=== PATIENT | male | born 1995 | race Caucasian/White ===

== ENCOUNTER 2019-03-15 20:51 | Emergency (ER) | payer SELFPAY ==
--- NOTE | 2019-03-15 21:02 | EDM.PDOC ---
ED HPI GENERAL MEDICAL PROBLEM - General Chief Complaint: Genitourinary Problem Stated Complaint: TESTICLE PAIN Time Seen by Provider: 03/15/19 20:54 - History of Present Illness INITIAL COMMENTS - FREE TEXT/NARRATIVE: HISTORY AND PHYSICAL: History of present illness: The patient is a 23-year-old male who presents with a three-day history of swelling of his left testicle which he says started suddenly and has been constant. He says that it is never been painful but he felt like the skin had a burning-like sensation which is why he looked and noticed that the left one was slightly swollen. He's had no penile drainage no burning or pain with urination and no skin changes lesions or abrasions. He denies any recent trauma to the area and has had no fevers chills nausea vomiting abdominal pain or flank pain. The patient denies risk for STDs and is never had an STD. The patient says he hasn't felt any lumps or bumps in the testicle but he is concerned because it is slightly swollen and the burning sensation. Here in the ED he says that is not currently painful. Review of systems: As per history of present illness and below otherwise all systems reviewed and negative. Past medical history: As per history of present illness and as reviewed below otherwise noncontributory. Surgical history: As per history of present illness and as reviewed below otherwise noncontributory. Social history: No reported history of drug or alcohol abuse. Family history: As per history of present illness and as reviewed below otherwise noncontributory. Physical exam: General: Well-developed well-nourished male who is nontoxic and well ambulated into the ED. Vital signs are noted by me HEENT: Atraumatic, normocephalic, negative for conjunctival pallor or scleral icterus, mucous membranes moist, throat clear, neck supple, nontender, trachea midline. Lungs: Clear to auscultation, breath sounds equal bilaterally, chest nontender. Heart: S1S2, regular rate and rhythm no overt murmurs Abdomen: Soft, nondistended, nontender. Negative for masses or hepatosplenomegaly. Negative for costovertebral tenderness. Pelvis: Stable nontender. Genitourinary: There is no inguinal adenopathy and the testicles are descended bilaterally. The cremasteric reflex is slightly diminished on the left and the lie is lower on the left which the patient says is his baseline. There is no scrotal skin erythema lesions or abrasions seen and throughout the perineal skin there are no changes or lesions. There is no tenderness with examination in the left testicle is only slightly larger than the right without any palpable masses. There is no specific spermatic cord tenderness or epididymal tenderness. Rectal: Deferred. Extremities: Atraumatic, full range of motion, no pedal edema. Neurovascular unremarkable. Neuro: Awake, alert, oriented. Cranial nerves II through XII unremarkable. Cerebellum unremarkable. Motor and sensory unremarkable throughout. Exam nonfocal. Diagnostics: UA with reflex, urine for gonorrhea and chlamydia, ultrasound of scrotum and contents Therapeutics: Impression: Left testicular swelling/tenderness, small bilateral hydroceles Definitive disposition and diagnosis as appropriate pending reevaluation and review of above. scrutom Pain Score (Numeric/FACES): 2 - Related Data Allergies Allergy/AdvReac Type Severity Reaction Status Date / Time erythromycin base Allergy Cannot Verified 03/15/19 21:02 Remember Home Meds: Home Meds . [No Known Home Meds] 03/15/19 [History] ED ROS GENERAL - Review of Systems Review Of Systems: ROS reveals no pertinent complaints other than HPI. ED EXAM, GENERAL - Physical Exam Exam: See Below (See dictation) Course - Vital Signs Last Recorded V/S: Last Vital Signs Temp 36.4 C 03/15/19 20:51 Pulse 86 03/15/19 20:51 Resp 18 03/15/19 20:51 BP 135/85 03/15/19 20:51 Pulse Ox 97 03/15/19 20:51 - Orders/Labs/Meds Orders: Active Orders 24 hr Category Date Time Status Scrotal Duplex Ltd [US] Stat Exams 03/15/19 21:30 Taken CHLAMYDIA AND GONORRHEA BY [facility] Stat Lab 03/15/19 21:20 Received Labs: Laboratory Tests 03/15/19 Range/Units 21:20 Urine Color YELLOW Urine Appearance CLEAR Urine pH 6.0 (5.0-8.0) Ur Specific Braman 1.020 (1.001-1.035) Urine Protein NEGATIVE (NEGATIVE) mg/dL Urine Glucose (UA) NEGATIVE (NEGATIVE) mg/dL Urine Ketones NEGATIVE (NEGATIVE) mg/dL Urine Occult Blood NEGATIVE (NEGATIVE) Urine Nitrite NEGATIVE (NEGATIVE) Urine Bilirubin NEGATIVE (NEGATIVE) Urine Urobilinogen 0.2 (<2.0) EU/dL Ur Leukocyte Esterase NEGATIVE (NEGATIVE) Departure - Departure Time of Disposition: 22:19 Disposition: Home, Self-Care 01 Condition: Good Clinical Impression: Hydrocele of testis - Discharge Information Referrals: PCP,None [Primary Care Provider] - Forms: ED Department Discharge Additional Instructions: The following information is given to patients seen in the emergency department who are being discharged to home. This information is to outline your options for follow-up care. We provide all patients seen in our emergency department with a follow-up referral. The need for follow-up, as well as the timing and circumstances, are variable depending upon the specifics of your emergency department visit. If you don't have a primary care physician on staff, we will provide you with a referral. We always advise you to contact your personal physician following an emergency department visit to inform them of the circumstance of the visit and for follow-up with them and/or the need for any referrals to a consulting specialist. The emergency department will also refer you to a specialist when appropriate. This referral assures that you have the opportunity for followup care with a specialist. All of these measure are taken in an effort to provide you with optimal care, which includes your followup. Under all circumstances we always encourage you to contact your private physician who remains a resource for coordinating your care. When calling for followup care, please make the office aware that this follow-up is from your recent emergency room visit. If for any reason you are refused follow-up, please contact the [facility] emergency department at and ask to speak to the emergency department charge nurse. [facility] [address] [place] [id number] Wear supportive underwear and try to avoid boxer briefs that are loose. Take [id number] medications for any pain and please call and follow-up with our urologist using resources given to above for reevaluation further care. Return to ER as needed and as discussed - My Orders Last 24 Hours: My Active Orders 03/15/19 21:20 CHLAMYDIA AND GONORRHEA BY [facility] Stat 03/15/19 21:30 Scrotal Duplex Ltd [US] Stat - Assessment/Plan Last 24 Hours: My Active Orders 03/15/19 21:20 CHLAMYDIA AND GONORRHEA BY [facility] Stat 03/15/19 21:30 Scrotal Duplex Ltd [US] Stat
--- NOTE | 2019-03-15 22:14 | US ---
INDICATION: Left testicular swelling. Rule out torsion. COMPARISON: None available. FINDINGS: Ultrasound examination of the testes was performed with a high-resolution linear transducer. The testes are normal in appearance, with smooth margins and uniform internal echogenicity. There is normal and symmetric color and pulse doppler flow. The right testis measures 4.7 x 2.1 x 3.9 cm and the left measures 4.6 x 2.3 x 3.3 cm The epididymal heads are normal in appearance. There are small bilateral hydroceles. No extra-testicular masses are seen. IMPRESSION: Small bilateral hydroceles. Otherwise normal ultrasound examination of the testes. Normal and symmetric color and pulse Doppler flow. Dictated by Iftikhar Schilling MD @ Mar 15 2019 10:08PM Signed by Dr. Iftikhar Schilling @ Mar 15 2019 10:11PM
--- NOTE | 2019-03-16 08:53 | US ---
EXAM DATE: 03/15/19 PATIENT'S AGE: 23 Patient: COLLEEN HYATT Facility: [facility] Site . Site : 1995 Study: US-Testicle [id number]/11/2019 9:59:41 PM Ordering Physician: Rayna Vides Final Report: INDICATION: Left testicular swelling. Rule out torsion. COMPARISON: None available. FINDINGS: Ultrasound examination of the testes was performed with a high-resolution linear transducer. The testes are normal in appearance, with smooth margins and uniform internal echogenicity. There is normal and symmetric color and pulse doppler flow. The right testis measures 4.7 x 2.1 x 3.9 cm and the left measures 4.6 x 2.3 x 3.3 cm The epididymal heads are normal in appearance. There are small bilateral hydroceles. No extra-testicular masses are seen. IMPRESSION: Small bilateral hydroceles. Otherwise normal ultrasound examination of the testes. Normal and symmetric color and pulse Doppler flow. Dictated by Iftikhar Schilling MD @ Mar 15 2019 10:08PM Signed by: Iftikhar Schilling MD @03/15/2019 10:11:51 PM (Electronic Signature) Report Signed by Proxy. ADARSH
== END 2019-03-15 22:30 | disposition home or self-care (01) ==
LOC: MW.ED 20:51
DX: N43.3 Hydrocele, unspecified (principal); Z88.1 Allergy status to other antibiotic agents
CPT/HCPCS: 76870; 76870-26; 81003; 87491; 87591; 93976; 93976-26; 99284-25